=== PATIENT | female | born 1940 | race Caucasian/White ===

== ENCOUNTER 2017-04-29 04:28 | Emergency (ER) | payer OTHER ==
[~2017-04-29 04:28] MED LIST: /DILT30TAB OR; DEMA10TA OR; DIGO0.257 OR; MULTIVIT PO; POTA20TA2 OR; PRADAXA OR; SLOWTAB OR; TRAZ50TA OR
[2017-04-29] MEDS ORDERED: ATOR1TAB19 PO (04:39)
[2017-04-29] MEDS ORDERED: DIGO0.12 PO (04:39)
[2017-04-29] MEDS ORDERED: METOCLOPRAMIDE INJ 10MG/2ML VIAL (J2765) IV ONE (05:30)
[2017-04-29] MEDS ORDERED: NS 1,000 ML IV ONE (05:30)
[2017-04-29 06:26] LABS: BASO % 0.3 % (0.0-1.0); EOS % 0.2 % (0.0-3.0); LARGE UNSTAINED CELL # 0.1 K/mm3 (0.0-0.4); LARGE UNSTAINED CELL % 0.4 % (0.0-4.0); LYMPH # 0.6 K/mm3 (1.5-4.5); LYMPH % 5.5 % (24.0-44.0); MEAN CORPUSCULAR HEMOGLOBIN 31.2 pg (27.0-33.0); MEAN CORPUSCULAR HGB CONC 33.5 g/dl (32.0-36.5); MONO # 0.4 K/mm3 (0.0-0.8); MONO % 3.9 % (0.0-5.0); NEUTROPHILS # 9.8 K/mm3 (1.8-7.7); NEUTROPHILS % 89.7 % (36.0-66.0); PLATELET COUNT, AUTOMATED 165 k/mm3 (150-450); RED CELL DISTRIBUTION WIDTH 13.7 % (11.5-14.5); WHITE BLOOD COUNT 10.9 K/mm3 (4.0-10.0)
[2017-04-29 06:27] LABS: INR 1.35
[2017-04-29 06:51] LABS: ALBUMIN 4.3 GM/DL (3.2-5.2); ALBUMIN/GLOBULIN RATIO 1.05 (1.00-1.93); ALKALINE PHOSPHATASE 80 U/L (45-117); ALT/SGPT 27 U/L (12-78); AMYLASE 46 U/L (25-115); ANION GAP 10 MEQ/L (8-16); AST/SGOT 24 U/L (15-37); BILIRUBIN,DIRECT 0.2 MG/DL (0.0-0.2); BILIRUBIN,TOTAL 0.8 MG/DL (0.2-1.0); BLOOD UREA NITROGEN 14 MG/DL (7-18); CALCIUM LEVEL 9.1 MG/DL (8.8-10.2); CARBON DIOXIDE LEVEL 26 MEQ/L (21-32); CHLORIDE LEVEL 107 MEQ/L (98-107); CREATININE FOR GFR 0.84 MG/DL (0.55-1.02); DIGOXIN LEVEL 0.6 NG/ML (0.5-2.0); GLOMERULAR FILTRATION RATE > 60.0 (>39); GLUCOSE, FASTING 167 MG/DL (83-110); POTASSIUM SERUM 3.4 MEQ/L (3.5-5.1); SODIUM LEVEL 143 MEQ/L (136-145); TOTAL PROTEIN 8.4 GM/DL (6.4-8.2)
[2017-04-29] MEDS ORDERED: ISOVUE-370 76% 100ML VIAL (Q9967) As Ordered ONE (06:56)
[2017-04-29] MEDS ORDERED: fentaNYL 100 MCG/2 ML INJECTION (J3010) IV ONE (07:30)
--- NOTE | 2017-04-29 07:40 | REPUSA ---
CLINICAL HISTORY: Abdominal pain. TECHNIQUE: Multiple axial, sagittal and coronal CT images were obtained through the abdomen and pelvi s after administration of intravenous contrast material. COMMENTS: Cirrhosis. Distended gallbladder. Diffuse thickening of the wall of the gallbladder with multiple gallstones. Mild diffuse thickening of the bladder. Pelvic congestion syndrome. Uncomplicated sigmoid diverticulosis. Moderate cardiomegaly. Dilated right cardiac cavities with contrast reflux into the suprahepatic IVC suggestive of dysfuncti on of the right cardiac cavities. 4.5 cm right renal simple cyst. There is no intra or extrahepatic biliary ductal dilatation. The spleen is normal. The pancreas is of normal contour and attenuation characteristics. There is no evidence of adrenal mass. Both kidneys demonstrate prompt and equal nephrograms. The kidneys are normal in size, shape and conf iguration. There is no evidence of renal or ureteral mass. No renal or ureteral calculi are identifie d. There is no hydroureter or hydronephrosis. No evidence for appendicitis. There is no bowel wall thickening. No evidence for small or large yocasta l obstruction. There is no evidence of abdominal ascites or lymphadenopathy. There is no evidence of intrinsic or extrinsic bladder mass. There is no pelvic ascites or lymphadeno smooth. Images of the lung bases show no evidence of pleural or parenchymal mass. There are no pleural effusi ons. The bony structures are free of lytic or blastic lesions. Multilevel degenerative changes are seen in volving the thoracolumbar spine. Scattered calcifications are seen involving the aorta and major bran ches compatible with atherosclerosis. IMPRESSION: Liver cirrhosis and portal hypertension. Cholelithiasis. Distended gallbladder. Right renal simple cyst. Uncomplicated colonic diverticulosis. Pelvic congestion syndrome. Thickened bladder. Thank you for your kind referral of this patient.
[2017-04-29 10:04] VITALS: BP 125/65
== END 2017-04-29 10:18 | disposition home or self-care (01) ==
LOC: M ED 04:28
DX: K80.50 Calculus of bile duct without cholangitis or cholecystitis without obstruction (principal); I48.91 Unspecified atrial fibrillation; I10 Essential (primary) hypertension; E78.4 Other hyperlipidemia; Z87.891 Personal history of nicotine dependence
CPT/HCPCS: 74177; 80048; 80076; 80162; 81001; 82150; 83690; 85025; 85610; 85730; 86705; 86709; 86803; 87086; 87340; 96361; 96374; 96375; 99284; J2765; J3010; Q9967

== ENCOUNTER 2017-07-15 19:01 | Emergency (ER) | payer OTHER ==
[~2017-07-15] VITALS: Ht 167.6 cm; Wt 69.1 kg
[~2017-07-15 19:01] MED LIST changes: +ATOR1TAB19 PO; +DIGO0.12 PO
[2017-07-15] MEDS ORDERED: NS 500 ML IV ONE (19:30)
[2017-07-15 19:39] LABS: BASO % 0.3 % (0.0-1.0); EOS # 0.3 10^3/uL (0.0-0.50); EOS % 3.1 % (0.0-3.0); IMMATURE GRANULOCYTE % 0.2 % (0-0); LYMPH # 0.9 10^3/uL (1.5-4.5); LYMPH % 9.6 % (24.0-44.0); MEAN CORPUSCULAR HEMOGLOBIN 30.3 pg (27.0-33.0); MEAN CORPUSCULAR HGB CONC 33.6 g/dl (32.0-36.5); MEAN CORPUSCULAR VOLUME 90.2 fl (80.0-96.0); NEUTROPHILS # 7.1 10^3/uL (1.8-7.7); NEUTROPHILS % 75.8 % (36.0-66.0); PLATELET COUNT, AUTOMATED 174 10^3/uL (150-450); RED CELL DISTRIBUTION WIDTH 14.8 % (11.5-14.5); WHITE BLOOD COUNT 9.3 10^3/uL (4.0-10.0)
[2017-07-15 20:15] LABS: ANION GAP 8 MEQ/L (8-16); BLOOD UREA NITROGEN 12 MG/DL (7-18); CALCIUM LEVEL 9.3 MG/DL (8.8-10.2); CARBON DIOXIDE LEVEL 26 MEQ/L (21-32); CHLORIDE LEVEL 104 MEQ/L (98-107); DIGOXIN LEVEL 0.7 NG/ML (0.5-2.0); GLOMERULAR FILTRATION RATE > 60.0 (>39); GLUCOSE, FASTING 105 MG/DL (83-110); POTASSIUM SERUM 3.7 MEQ/L (3.5-5.1); SODIUM LEVEL 138 MEQ/L (136-145)
[2017-07-15 21:26] VITALS: BP 143/69
--- NOTE | 2017-07-16 06:29 | ECGEPIP ---
Stationary ECG Study [facility] - ED Test Date: 2017-07-15 Pat Name: COLBY PARDO Department: Room: - Gender: F Senior [employer] Consult[employer]: [facility] : 1940 Requested By: MEGAN ECHEVARRIA Order Number: [id number] Reading MD: Rebecca Hernandez Measurements Intervals [place] Rate: 125 P: [place]: 0 QRS: 261 QRSD: 89 T: 31 QT: 300 QTc: 433 Interpretive Statements ATRIAL FIBRILLATION WITH RAPID VENTRICULAR RESPONSE RIGHT VENTRICULAR HYPERTROPHY MODERATE ST DEPRESSION LOW QRS VOLTAGE LIMG LEADS NONSPECIFIC ST T WAVE CHANGES NO OLD ECG FOR COMPARISON Electronically Signed On 07-16-2017 6:29:19 EDT by Rebecca Hernandez
--- NOTE | 2017-07-16 14:30 | REP ---
Chest x-ray: Two views: History: Cough. Comparison study: November 14, 2010. Findings: EKG monitoring electrodes overlie the chest. The heart is moderately enlarged unchanged. Pulmonary vasculature is cephalized. Pleural angles are sharp. There is no evidence of pulmonary edema, pleural effusion, or focal infiltrate. There are degenerative changes in the thoracic spine as before. Impression: Cardiomegaly with pulmonary vascular cephalization and congestion. No pleural effusion or pulmonary edema seen. Signed by Patrick Burden MD 07/16/2017 08:45 A
== END 2017-07-15 21:36 | disposition home or self-care (01) ==
LOC: M ED 19:01
DX: J06.9 Acute upper respiratory infection, unspecified (principal); I48.2 Chronic atrial fibrillation

== ENCOUNTER 2018-03-19 19:50 | Emergency (ER) | payer OTHER ==
[2018-03-19] MEDS: ONDANSETRON 4MG/2ML VIAL (J2405) IV (20:27)
[2018-03-19] MEDS: NS 500 ML IV (20:30)
[2018-03-19 20:32] LABS: BASO % 0.3 % (0.0-1.0); EOS # 0.1 10^3/uL (0.0-0.50); EOS % 0.8 % (0.0-3.0); HEMATOCRIT 43.7 % (36.0-47.0); HEMOGLOBIN 15.3 g/dl (12.0-15.5); IMMATURE GRANULOCYTE % 0.4 % (0-3.0); LYMPH # 0.7 10^3/uL (1.5-4.5); LYMPH % 5.9 % (24.0-44.0); MEAN CORPUSCULAR VOLUME 88.6 fl (80.0-96.0); MONO # 0.7 10^3/uL (0.0-0.8); MONO % 6.4 % (0.0-5.0); NEUTROPHILS # 9.5 10^3/uL (1.8-7.7); NEUTROPHILS % 86.2 % (36.0-66.0); PLATELET COUNT, AUTOMATED 194 10^3/uL (150-450); RED BLOOD COUNT 4.93 10^6/uL (4.00-5.40); RED CELL DISTRIBUTION WIDTH 13.6 % (11.5-14.5)
[2018-03-19] MEDS: fentaNYL 100 MCG/2 ML INJECTION (J3010) IV (20:33)
[2018-03-19 20:59] LABS: ALKALINE PHOSPHATASE 90 U/L (45-117); ALT/SGPT 27 U/L (12-78); AMYLASE 42 U/L (25-115); AST/SGOT 23 U/L (7-37); BILIRUBIN,DIRECT 0.4 MG/DL (0.0-0.2); BILIRUBIN,TOTAL 1.4 MG/DL (0.2-1.0); BLOOD UREA NITROGEN 13 MG/DL (7-18); CARBON DIOXIDE LEVEL 23 MEQ/L (21-32); CHLORIDE LEVEL 103 MEQ/L (98-107); CK-MB VALUE MASS 1.4 NG/ML (<3.6); CREATININE FOR GFR 0.96 MG/DL (0.55-1.30); GLUCOSE, FASTING 157 MG/DL (70-100); LIPASE 109 U/L (73-393); POTASSIUM SERUM 3.6 MEQ/L (3.5-5.1); TOTAL PROTEIN 8.6 GM/DL (6.4-8.2); TROPONIN I 0.15 NG/ML (< 0.10)
[2018-03-19 21:09] LABS: DIGOXIN LEVEL 0.9 NG/ML (0.5-2.0)
[2018-03-19] MEDS ORDERED: ISOVUE-370 76% 100ML VIAL (Q9967) As Ordered (21:14)
[2018-03-19 22:13] LABS: ANION GAP 14 MEQ/L (8-16); SODIUM LEVEL 140 MEQ/L (136-145)
[2018-03-19 22:14] LABS: ALBUMIN 4.4 GM/DL (3.2-5.2); ALBUMIN/GLOBULIN RATIO 1.05 (1.00-1.93)
[2018-03-19 22:37] LABS: CPK CREATINE PHOSPHOKINASE 72 U/L (26-192); MB/CK RELATIVE INDEX 1.94 (< OR =4)
[2018-03-20] LABS: CK-MB VALUE MASS 1.3 NG/ML (<3.6); CPK CREATINE PHOSPHOKINASE 56 U/L (26-192); MB/CK RELATIVE INDEX 2.32 (< OR =4); TROPONIN I 0.14 NG/ML (< 0.10)
== END 2018-03-20 02:02 | disposition home or self-care (01) ==
LOC: M ED 03-20 02:02
DX: K80.70 Calculus of gallbladder and bile duct without cholecystitis without obstruction (principal); I48.91 Unspecified atrial fibrillation; R94.31 Abnormal electrocardiogram [ECG] [EKG]; I10 Essential (primary) hypertension; Z87.891 Personal history of nicotine dependence; Z98.890 Other specified postprocedural states; Z88.0 Allergy status to penicillin; Z91.048 Other nonmedicinal substance allergy status

== ENCOUNTER 2018-03-21 06:42 | Inpatient (IN) | payer OTHER ==
[2018-03-21 07:53] LABS: BASO % 0.2 % (0.0-1.0); EOS # 0.3 10^3/uL (0.0-0.50); EOS % 1.4 % (0.0-3.0); HEMATOCRIT 41.6 % (36.0-47.0); HEMOGLOBIN 14.1 g/dl (12.0-15.5); IMMATURE GRANULOCYTE % 0.4 % (0-3.0); LYMPH # 1.2 10^3/uL (1.5-4.5); LYMPH % 6.6 % (24.0-44.0); MEAN CORPUSCULAR HEMOGLOBIN 30.6 pg (27.0-33.0); MEAN CORPUSCULAR HGB CONC 33.9 g/dl (32.0-36.5); MEAN CORPUSCULAR VOLUME 90.2 fl (80.0-96.0); MONO # 1.6 10^3/uL (0.0-0.8); MONO % 9.2 % (0.0-5.0); NEUTROPHILS # 14.6 10^3/uL (1.8-7.7); NEUTROPHILS % 82.2 % (36.0-66.0); PLATELET COUNT, AUTOMATED 162 10^3/uL (150-450); RED BLOOD COUNT 4.61 10^6/uL (4.00-5.40); RED CELL DISTRIBUTION WIDTH 13.9 % (11.5-14.5); WHITE BLOOD COUNT 17.8 10^3/uL (4.0-10.0)
[2018-03-21] MEDS: KETOROLAC 30 MG/ML VIAL (J1885) IV ×2 (07:53→13:44)
[2018-03-21] MEDS: NS 1,000 ML IV (07:54)
[2018-03-21 07:58] LABS: ALBUMIN 3.6 GM/DL (3.2-5.2); ALKALINE PHOSPHATASE 76 U/L (45-117); ALT/SGPT 24 U/L (12-78); ANION GAP 7 MEQ/L (8-16); AST/SGOT 20 U/L (7-37); BILIRUBIN,DIRECT 0.4 MG/DL (0.0-0.2); BILIRUBIN,TOTAL 1.6 MG/DL (0.2-1.0); BLOOD UREA NITROGEN 17 MG/DL (7-18); CALCIUM LEVEL 8.4 MG/DL (8.8-10.2); CARBON DIOXIDE LEVEL 28 MEQ/L (21-32); CHLORIDE LEVEL 104 MEQ/L (98-107); CK-MB VALUE MASS < 1.0 NG/ML (<3.6); CPK CREATINE PHOSPHOKINASE 66 U/L (26-192); CREATININE FOR GFR 0.84 MG/DL (0.55-1.30); GLOMERULAR FILTRATION RATE > 60.0 (>39); GLUCOSE, FASTING 118 MG/DL (70-100); LIPASE 70 U/L (73-393); MB/CK RELATIVE INDEX 1.51 (< OR =4); POTASSIUM SERUM 3.8 MEQ/L (3.5-5.1); SODIUM LEVEL 139 MEQ/L (136-145); TOTAL PROTEIN 8.1 GM/DL (6.4-8.2); TROPONIN I 0.15 NG/ML (< 0.10)
[2018-03-21] MEDS: SENOKOT S TAB PO ×3 (09:00→21:40)
[2018-03-21 09:02] LABS: LACTIC ACID SEPSIS PROTOCOL 1.1 MMOL/L (0.4-2.0)
[2018-03-21] MEDS ORDERED: ACETAMINOPHEN TAB 650MG DOSE (2X325MG) PO (10:45)
[2018-03-21] MEDS: LR 1,000 ML IV (12:04)
[2018-03-21] MEDS: ATORVASTATIN 10 MG TAB PO (12:05)
[2018-03-21] MEDS: CIPROFLOXACIN 400 MG in APPROPRIATE DILUENT 1 EA IV (12:05)
[2018-03-21] MEDS: DIGOXIN 0.125 MG TAB PO (12:06)
[2018-03-21] MEDS: metroNIDAZOLE 500 MG in APPROPRIATE DILUENT 1 EA IV ×2 (13:35→21:40)
[2018-03-21] MEDS: ONDANSETRON 4MG/2ML VIAL (J2405) IV ×2 (13:35→21:39)
[2018-03-21 14:41] LABS: INR 1.62; PROTHROMBIN TIME 19.5 SECONDS (12.1-14.4)
[2018-03-21 14:43] LABS: PARTIAL THROMBOPLASTIN TIME 48.4 SECONDS (25.4-37.6)
[2018-03-21] MEDS: NORCO, ANEXSIA 5/325MG TABLET (HYDROcodone/ACETAMINOPHEN) PO (19:21)
[2018-03-22] MEDS: CIPROFLOXACIN 400 MG in APPROPRIATE DILUENT 1 EA IV ×2 (00:09→11:56)
[2018-03-22] MEDS: LR 1,000 ML IV ×3 (03:02→19:30)
[2018-03-22] MEDS: metroNIDAZOLE 500 MG in APPROPRIATE DILUENT 1 EA IV ×3 (05:08→21:27)
[2018-03-22 06:27] LABS: BASO % 0.2 % (0.0-1.0); EOS # 0.2 10^3/uL (0.0-0.50); EOS % 1.3 % (0.0-3.0); HEMOGLOBIN 13.2 g/dl (12.0-15.5); IMMATURE GRANULOCYTE % 0.6 % (0-3.0); LYMPH # 0.8 10^3/uL (1.5-4.5); LYMPH % 4.8 % (24.0-44.0); MEAN CORPUSCULAR HEMOGLOBIN 31.3 pg (27.0-33.0); MEAN CORPUSCULAR HGB CONC 33.8 g/dl (32.0-36.5); MEAN CORPUSCULAR VOLUME 92.4 fl (80.0-96.0); MONO # 1.9 10^3/uL (0.0-0.8); MONO % 10.8 % (0.0-5.0); NEUTROPHILS # 14.3 10^3/uL (1.8-7.7); NEUTROPHILS % 82.3 % (36.0-66.0); PLATELET COUNT, AUTOMATED 140 10^3/uL (150-450); RED BLOOD COUNT 4.22 10^6/uL (4.00-5.40); RED CELL DISTRIBUTION WIDTH 13.9 % (11.5-14.5); WHITE BLOOD COUNT 17.4 10^3/uL (4.0-10.0)
[2018-03-22 07:02] LABS: ALBUMIN/GLOBULIN RATIO 0.68 (1.00-1.93); ALKALINE PHOSPHATASE 73 U/L (45-117); ALT/SGPT 25 U/L (12-78); ANION GAP 8 MEQ/L (8-16); AST/SGOT 42 U/L (7-37); BILIRUBIN,TOTAL 1.7 MG/DL (0.2-1.0); BLOOD UREA NITROGEN 25 MG/DL (7-18); CALCIUM LEVEL 8.6 MG/DL (8.8-10.2); CARBON DIOXIDE LEVEL 28 MEQ/L (21-32); CHLORIDE LEVEL 104 MEQ/L (98-107); CREATININE FOR GFR 0.86 MG/DL (0.55-1.30); GLOMERULAR FILTRATION RATE > 60.0 (>39); GLUCOSE, FASTING 98 MG/DL (70-100); SODIUM LEVEL 140 MEQ/L (136-145); TOTAL PROTEIN 7.4 GM/DL (6.4-8.2)
[2018-03-22 07:15] LABS: POTASSIUM SERUM 5.4 MEQ/L (3.5-5.1)
[2018-03-22] MEDS: DIGOXIN 0.125 MG TAB PO (08:24)
[2018-03-22] MEDS: ATORVASTATIN 10 MG TAB PO (08:24)
[2018-03-22] MEDS: SENOKOT S TAB PO ×2 (08:25→21:27)
[2018-03-22] MEDS: NORCO, ANEXSIA 5/325MG TABLET (HYDROcodone/ACETAMINOPHEN) PO ×2 (08:25→14:41)
[2018-03-22] MEDS: ONDANSETRON 4MG/2ML VIAL (J2405) IV ×2 (12:43→21:24)
[2018-03-22] MEDS: NS 1,000 ML IV (14:27)
[2018-03-22] MEDS ORDERED: PROPOFOL 200 MG/20 ML VIAL As Ordered (15:34)
[2018-03-22] MEDS ORDERED: LIDOCAINE 2% INJ 100 MG/5 ML SDV (FOR ANES.) As Ordered (15:34)
[2018-03-22] MEDS ORDERED: ROCURONIUM BROMIDE 50 MG/5 ML VIAL As Ordered (15:34)
[2018-03-22] MEDS ORDERED: fentaNYL 250 MCG/5 ML INJECTION (J3010) As Ordered (15:35)
[2018-03-22] MEDS ORDERED: MIDAZOLAM INJ 2 MG/2 ML VIAL (J2250) As Ordered (15:35)
[2018-03-22] MEDS ORDERED: GLYCOPYRROLATE INJ 0.2 MG/ML 2 ML VIAL As Ordered (16:54)
[2018-03-22] MEDS ORDERED: NEOSTIGMINE 10 MG/10 ML VIAL (J2710) As Ordered (16:54)
[2018-03-22] MEDS ORDERED: KETOROLAC 60 MG/2 ML VIAL (J1885) As Ordered (16:55)
[2018-03-22] MEDS ORDERED: dexameTHASONE 4 MG/ML 1ML VIAL (J1100) As Ordered ×2 (16:55)
[2018-03-22] MEDS ORDERED: METOCLOPRAMIDE INJ 10MG/2ML VIAL (J2765) As Ordered (16:55)
[2018-03-22] MEDS ORDERED: ONDANSETRON 4MG/2ML VIAL (J2405) As Ordered (16:55)
[2018-03-22] MEDS: THROMBIN SOLN 5,000 UNITS VIAL As Ordered (17:22)
[2018-03-22] MEDS: THROMBIN SOLN 20,000 UNITS KIT As Ordered (17:24)
[2018-03-22] MEDS ORDERED: HYDROmorphone HCL 2 MG/ML 1ML VIAL (J1170) As Ordered (18:23)
[2018-03-22] MEDS ORDERED: ESMOLOL INJ 100MG/10ML VIAL As Ordered (18:37)
[2018-03-22] MEDS: BUPIVACAINE HCL 0.25% 30 ML VIAL As Ordered (18:45)
[2018-03-22] MEDS: LIDOCAINE 1% SDV INJ 30 ML VIAL As Ordered (18:45)
[2018-03-22] MEDS ORDERED: HYDROMORPHONE HCL 0.5 MG/ 0.5 ML SYRINGE (J1170 PER 1) IV ×2 (19:15→19:30)
[2018-03-22] MEDS ORDERED: fentaNYL 100 MCG/2 ML INJECTION (J3010) IV (19:30)
[2018-03-22] MEDS ORDERED: ONDANSETRON 4MG/2ML VIAL (J2405) IV (19:30)
[2018-03-22] MEDS ORDERED: METOCLOPRAMIDE INJ 10MG/2ML VIAL (J2765) IV (19:30)
[2018-03-22 19:36] LABS: HEMATOCRIT 38.2 % (36.0-47.0); HEMOGLOBIN 12.6 g/dl (12.0-15.5); MEAN CORPUSCULAR HEMOGLOBIN 30.7 pg (27.0-33.0); MEAN CORPUSCULAR VOLUME 92.9 fl (80.0-96.0); PLATELET COUNT, AUTOMATED 186 10^3/uL (150-450); RED BLOOD COUNT 4.11 10^6/uL (4.00-5.40); RED CELL DISTRIBUTION WIDTH 13.9 % (11.5-14.5); WHITE BLOOD COUNT 14.6 10^3/uL (4.0-10.0)
[2018-03-22] MEDS ORDERED: PERCOCET 5MG/325MG TAB As Ordered (20:05)
[2018-03-22] MEDS: PERCOCET 5MG/325MG TAB PO (20:06)
[2018-03-23] MEDS: NS 1,000 ML IV (00:05)
[2018-03-23] MEDS: CIPROFLOXACIN 400 MG in APPROPRIATE DILUENT 1 EA IV ×3 (00:05→23:50)
[2018-03-23] MEDS: NORCO, ANEXSIA 5/325MG TABLET (HYDROcodone/ACETAMINOPHEN) PO ×2 (01:15→09:19)
[2018-03-23 01:32] LABS: IMMEDIATE SPIN CROSSMATCH 1 2
[2018-03-23] MEDS: metroNIDAZOLE 500 MG in APPROPRIATE DILUENT 1 EA IV ×3 (04:02→20:59)
[2018-03-23 08:17] LABS: BASO % 0.1 % (0.0-1.0); HEMATOCRIT 35.1 % (36.0-47.0); HEMOGLOBIN 11.9 g/dl (12.0-15.5); IMMATURE GRANULOCYTE % 0.4 % (0-3.0); LYMPH # 0.3 10^3/uL (1.5-4.5); LYMPH % 2.4 % (24.0-44.0); MEAN CORPUSCULAR HGB CONC 33.9 g/dl (32.0-36.5); MEAN CORPUSCULAR VOLUME 91.4 fl (80.0-96.0); MONO # 0.9 10^3/uL (0.0-0.8); MONO % 6.2 % (0.0-5.0); NEUTROPHILS # 12.7 10^3/uL (1.8-7.7); NEUTROPHILS % 90.9 % (36.0-66.0); PLATELET COUNT, AUTOMATED 169 10^3/uL (150-450); RED BLOOD COUNT 3.84 10^6/uL (4.00-5.40); RED CELL DISTRIBUTION WIDTH 13.7 % (11.5-14.5)
[2018-03-23 08:46] LABS: ALBUMIN 3.1 GM/DL (3.2-5.2); ALBUMIN/GLOBULIN RATIO 0.86 (1.00-1.93); ALKALINE PHOSPHATASE 70 U/L (45-117); ALT/SGPT 23 U/L (12-78); ANION GAP 8 MEQ/L (8-16); AST/SGOT 25 U/L (7-37); BILIRUBIN,TOTAL 0.8 MG/DL (0.2-1.0); BLOOD UREA NITROGEN 25 MG/DL (7-18); CALCIUM LEVEL 8.4 MG/DL (8.8-10.2); CARBON DIOXIDE LEVEL 24 MEQ/L (21-32); CHLORIDE LEVEL 106 MEQ/L (98-107); CREATININE FOR GFR 0.75 MG/DL (0.55-1.30); GLOMERULAR FILTRATION RATE > 60.0 (>39); GLUCOSE, FASTING 144 MG/DL (70-100); POTASSIUM SERUM 4.2 MEQ/L (3.5-5.1); SODIUM LEVEL 138 MEQ/L (136-145); TOTAL PROTEIN 6.7 GM/DL (6.4-8.2)
[2018-03-23] MEDS: SENOKOT S TAB PO ×2 (09:16→20:59)
[2018-03-23] MEDS: ATORVASTATIN 10 MG TAB PO (09:18)
[2018-03-23] MEDS: DIGOXIN 0.125 MG TAB PO (09:18)
[2018-03-23] MEDS: ONDANSETRON 4MG/2ML VIAL (J2405) IV ×2 (16:53→22:24)
[2018-03-24] MEDS: NORCO, ANEXSIA 5/325MG TABLET (HYDROcodone/ACETAMINOPHEN) PO (02:08)
[2018-03-24 05:22] LABS: BASO % 0.1 % (0.0-1.0); EOS % 0.1 % (0.0-3.0); HEMOGLOBIN 12.3 g/dl (12.0-15.5); IMMATURE GRANULOCYTE % 0.5 % (0-3.0); LYMPH # 0.7 10^3/uL (1.5-4.5); LYMPH % 4.1 % (24.0-44.0); MEAN CORPUSCULAR HEMOGLOBIN 30.4 pg (27.0-33.0); MEAN CORPUSCULAR HGB CONC 34.2 g/dl (32.0-36.5); MEAN CORPUSCULAR VOLUME 89.1 fl (80.0-96.0); MONO # 1.5 10^3/uL (0.0-0.8); MONO % 8.1 % (0.0-5.0); NEUTROPHILS # 15.6 10^3/uL (1.8-7.7); NEUTROPHILS % 87.1 % (36.0-66.0); PLATELET COUNT, AUTOMATED 235 10^3/uL (150-450); RED BLOOD COUNT 4.04 10^6/uL (4.00-5.40); RED CELL DISTRIBUTION WIDTH 13.6 % (11.5-14.5); WHITE BLOOD COUNT 17.9 10^3/uL (4.0-10.0)
[2018-03-24 05:30] LABS: ALBUMIN 3.8 GM/DL (3.2-5.2); ALBUMIN/GLOBULIN RATIO 0.88 (1.00-1.93); ALKALINE PHOSPHATASE 80 U/L (45-117); ALT/SGPT 32 U/L (12-78); ANION GAP 8 MEQ/L (8-16); AST/SGOT 41 U/L (7-37); BILIRUBIN,TOTAL 0.9 MG/DL (0.2-1.0); BLOOD UREA NITROGEN 25 MG/DL (7-18); CARBON DIOXIDE LEVEL 27 MEQ/L (21-32); CHLORIDE LEVEL 105 MEQ/L (98-107); CREATININE FOR GFR 0.77 MG/DL (0.55-1.30); GLOMERULAR FILTRATION RATE > 60.0 (>39); GLUCOSE, FASTING 126 MG/DL (70-100); SODIUM LEVEL 140 MEQ/L (136-145); TOTAL PROTEIN 8.1 GM/DL (6.4-8.2)
[2018-03-24] MEDS: metroNIDAZOLE 500 MG in APPROPRIATE DILUENT 1 EA IV ×3 (05:40→20:49)
[2018-03-24] MEDS: DIGOXIN 0.125 MG TAB PO (08:31)
[2018-03-24] MEDS: ATORVASTATIN 10 MG TAB PO (08:31)
[2018-03-24] MEDS: SENOKOT S TAB PO ×2 (08:32→20:48)
[2018-03-24] MEDS: DABIGATRAN ETEXILATE 75 MG CAP (PRADAXA) PO ×2 (08:35→20:49)
[2018-03-24] MEDS ORDERED: SLF 3 ML SYR IV (12:15)
[2018-03-24] MEDS: CIPROFLOXACIN 400 MG in APPROPRIATE DILUENT 1 EA IV ×2 (12:44→23:41)
[2018-03-24] MEDS: SLF 3 ML SYR IV ×2 (14:19→20:49)
[2018-03-24] MEDS: KETOROLAC 30 MG/ML VIAL (J1885) IV (17:06)
[2018-03-24] MEDS: diphenhydrAMINE 25 MG CAP PO (22:05)
[2018-03-25] MEDS: ONDANSETRON 4MG/2ML VIAL (J2405) IV (04:57)
[2018-03-25] MEDS: KETOROLAC 30 MG/ML VIAL (J1885) IV (04:58)
[2018-03-25] MEDS: metroNIDAZOLE 500 MG in APPROPRIATE DILUENT 1 EA IV (04:58)
[2018-03-25] MEDS: SLF 3 ML SYR IV ×3 (05:05→21:05)
[2018-03-25] MEDS: DIGOXIN 0.125 MG TAB PO (09:00)
[2018-03-25] MEDS: ATORVASTATIN 10 MG TAB PO (09:00)
[2018-03-25] MEDS: DABIGATRAN ETEXILATE 75 MG CAP (PRADAXA) PO ×2 (09:00→21:05)
[2018-03-25] MEDS: SENOKOT S TAB PO ×2 (09:00→21:04)
[2018-03-25 17:55] LABS: BASO % 0.3 % (0.0-1.0); EOS # 0.2 10^3/uL (0.0-0.50); EOS % 1.9 % (0.0-3.0); HEMATOCRIT 35.3 % (36.0-47.0); HEMOGLOBIN 12.1 g/dl (12.0-15.5); IMMATURE GRANULOCYTE % 0.6 % (0-3.0); LYMPH % 9.8 % (24.0-44.0); MEAN CORPUSCULAR HEMOGLOBIN 30.5 pg (27.0-33.0); MEAN CORPUSCULAR HGB CONC 34.3 g/dl (32.0-36.5); MEAN CORPUSCULAR VOLUME 88.9 fl (80.0-96.0); MONO % 9.8 % (0.0-5.0); NEUTROPHILS # 8.1 10^3/uL (1.8-7.7); NEUTROPHILS % 77.6 % (36.0-66.0); PLATELET COUNT, AUTOMATED 226 10^3/uL (150-450); RED BLOOD COUNT 3.97 10^6/uL (4.00-5.40); RED CELL DISTRIBUTION WIDTH 13.4 % (11.5-14.5); WHITE BLOOD COUNT 10.5 10^3/uL (4.0-10.0)
[2018-03-25 18:06] LABS: AMMONIA 39 uMOL/L (<32)
[2018-03-25 18:09] LABS: ALBUMIN 2.8 GM/DL (3.2-5.2); ALBUMIN/GLOBULIN RATIO 0.93 (1.00-1.93); ALKALINE PHOSPHATASE 64 U/L (45-117); ALT/SGPT 29 U/L (12-78); ANION GAP 6 MEQ/L (8-16); AST/SGOT 32 U/L (7-37); BILIRUBIN,TOTAL 0.8 MG/DL (0.2-1.0); BLOOD UREA NITROGEN 19 MG/DL (7-18); CALCIUM LEVEL 7.9 MG/DL (8.8-10.2); CARBON DIOXIDE LEVEL 27 MEQ/L (21-32); CHLORIDE LEVEL 109 MEQ/L (98-107); CREATININE FOR GFR 0.59 MG/DL (0.55-1.30); GLOMERULAR FILTRATION RATE > 60.0 (>39); GLUCOSE, FASTING 99 MG/DL (70-100); POTASSIUM SERUM 4.2 MEQ/L (3.5-5.1); SODIUM LEVEL 142 MEQ/L (136-145); TOTAL PROTEIN 5.8 GM/DL (6.4-8.2)
[2018-03-26] MEDS: SLF 3 ML SYR IV (05:22)
[2018-03-26 05:23] LABS: BASO % 0.2 % (0.0-1.0); EOS # 0.3 10^3/uL (0.0-0.50); EOS % 2.1 % (0.0-3.0); HEMATOCRIT 36.9 % (36.0-47.0); HEMOGLOBIN 12.5 g/dl (12.0-15.5); IMMATURE GRANULOCYTE % 0.8 % (0-3.0); LYMPH # 1.1 10^3/uL (1.5-4.5); LYMPH % 8.3 % (24.0-44.0); MEAN CORPUSCULAR HEMOGLOBIN 30.3 pg (27.0-33.0); MEAN CORPUSCULAR HGB CONC 33.9 g/dl (32.0-36.5); MEAN CORPUSCULAR VOLUME 89.6 fl (80.0-96.0); MONO # 1.1 10^3/uL (0.0-0.8); MONO % 8.9 % (0.0-5.0); NEUTROPHILS # 10.1 10^3/uL (1.8-7.7); NEUTROPHILS % 79.7 % (36.0-66.0); PLATELET COUNT, AUTOMATED 245 10^3/uL (150-450); RED BLOOD COUNT 4.12 10^6/uL (4.00-5.40); RED CELL DISTRIBUTION WIDTH 13.6 % (11.5-14.5); WHITE BLOOD COUNT 12.7 10^3/uL (4.0-10.0)
[2018-03-26 05:43] LABS: ALBUMIN 2.7 GM/DL (3.2-5.2); ALBUMIN/GLOBULIN RATIO 0.77 (1.00-1.93); ALKALINE PHOSPHATASE 70 U/L (45-117); ALT/SGPT 29 U/L (12-78); ANION GAP 6 MEQ/L (8-16); AST/SGOT 25 U/L (7-37); BILIRUBIN,TOTAL 0.8 MG/DL (0.2-1.0); BLOOD UREA NITROGEN 14 MG/DL (7-18); CALCIUM LEVEL 7.9 MG/DL (8.8-10.2); CARBON DIOXIDE LEVEL 27 MEQ/L (21-32); CHLORIDE LEVEL 107 MEQ/L (98-107); CREATININE FOR GFR 0.38 MG/DL (0.55-1.30); GLOMERULAR FILTRATION RATE > 60.0 (>39); GLUCOSE, FASTING 96 MG/DL (70-100); SODIUM LEVEL 140 MEQ/L (136-145); TOTAL PROTEIN 6.2 GM/DL (6.4-8.2)
[2018-03-26] MEDS: SENOKOT S TAB PO (09:34)
[2018-03-26] MEDS: ATORVASTATIN 10 MG TAB PO (09:34)
[2018-03-26] MEDS: DABIGATRAN ETEXILATE 75 MG CAP (PRADAXA) PO (09:36)
[2018-03-26] MEDS: DIGOXIN 0.125 MG TAB PO (09:36)
[2018-03-26 10:44] LABS: VITAMIN B12 LEVEL 612 PG/ML (247-911)
[2018-03-26] MEDS ORDERED: ONDANSETRON 4 MG ORAL DISINTEGRATING TAB (Q0162 PER 1MG) PO (11:30)
== END 2018-03-26 13:31 | disposition home or self-care (01) | DRG 417 ==
LOC: M PCU 03-22 20:30 → M ED 06:42 → M ED INP 10:43 → M MSPAV 11:51
PROC: 0FT44ZZ Resection of Gallbladder, Percutaneous Endoscopic Approach (ICD-10-PCS; principal; 2018-03-22 16:00)
PROC: 30233M1 Transfusion of Nonautologous Plasma Cryoprecipitate into Peripheral Vein, Percutaneous Approach (ICD-10-PCS; 2018-03-22 16:14)
DX: K80.00 Calculus of gallbladder with acute cholecystitis without obstruction (principal); G93.40 Encephalopathy, unspecified; Q21.1 Atrial septal defect; F03.91 Unspecified dementia, unspecified severity, with behavioral disturbance; I48.2 Chronic atrial fibrillation; K74.60 Unspecified cirrhosis of liver; G47.30 Sleep apnea, unspecified; I27.20 Pulmonary hypertension, unspecified; I08.0 Rheumatic disorders of both mitral and aortic valves; Z87.891 Personal history of nicotine dependence; Z98.890 Other specified postprocedural states; Z91.048 Other nonmedicinal substance allergy status; Z88.0 Allergy status to penicillin; Z98.41 Cataract extraction status, right eye; Z98.42 Cataract extraction status, left eye; Z79.01 Long term (current) use of anticoagulants; Z79.899 Other long term (current) drug therapy; Z88.5 Allergy status to narcotic agent; Z88.4 Allergy status to anesthetic agent; Z99.81 Dependence on supplemental oxygen

== ENCOUNTER → 2018-11-16 | Outpatient (REF) | payer MEDICARE, OTHER ==
[~2018-11-16] MED LIST changes: -/DILT30TAB OR; +/DILT30TAB PO; -DEMA10TA OR; +DEMA10TA PO; +IBUPOTC PO; +NORCOTAB PO; -POTA20TA2 OR; +POTA20TA2 PO; +PRAD150C PO; -SLOWTAB OR; +SLOWTAB PO
[2018-11-16 16:52] LABS: HEMATOCRIT 37.6 % (36.0-47.0); HEMOGLOBIN 12.4 g/dl (12.0-15.5); MEAN CORPUSCULAR HEMOGLOBIN 29.7 pg (27.0-33.0); PLATELET COUNT, AUTOMATED 150 10^3/uL (150-450); RED BLOOD COUNT 4.18 10^6/uL (4.00-5.40); WHITE BLOOD COUNT 7.9 10^3/uL (4.0-10.0)
[2018-11-16 17:40] LABS: CHOLESTEROL RISK RATIO 1.918 (<5); DIGOXIN LEVEL 0.7 NG/ML (0.5-2.0)
== END ==
LOC: M SFHCCLAY 13:35
PROVIDERS: ATTEND Family Medicine
DX: I48.91 Unspecified atrial fibrillation (principal); I10 Essential (primary) hypertension; E78.00 Pure hypercholesterolemia, unspecified
CPT/HCPCS: 80061; 80162; 85027; G0463